=== PATIENT | male | born 1965 | race Caucasian/White ===

== ENCOUNTER 2023-02-05 14:40 | Outpatient (CLI) | payer OTHER, SELFPAY | END 2023-02-05 14:41 | disposition home or self-care (01) | LOC: ANHAUDIO 14:41 | PROVIDERS: Visit Provider Otolaryngology | DX: H90.3 Sensorineural hearing loss, bilateral (principal); H93.13 Tinnitus, bilateral | CPT/HCPCS: 92557; 92567 ==